=== PATIENT | male | born 1990 | race Caucasian/White ===

== ENCOUNTER 2016-10-20 11:09 | Emergency (ER) | payer SELFPAY ==
[~2016-10-20] VITALS: Ht 182.9 cm; Wt 79.5 kg
[2016-10-20 12:04] LABS: INFLUENZA B NEGATIVE
[2016-10-20 12:43] VITALS: BP 140/72; PULSE 92; TEMP 99
== END 2016-10-20 12:37 | disposition home or self-care (01) ==
LOC: COL.ER 11:09
PROVIDERS: Physician Assistant
DX: J11.1 Influenza due to unidentified influenza virus with other respiratory manifestations (principal); F17.210 Nicotine dependence, cigarettes, uncomplicated